=== PATIENT | male | born 1970 | race Hispanic/Latino ===

== ENCOUNTER 2016-12-05 14:33 | Inpatient (IN) | payer BC ==
[2016-12-05] MEDS ORDERED: Lidocaine 1% (10 ml) Inj INFIL STA (15:13)
[2016-12-05] MEDS ORDERED: Vancomycin 1 g Inj ONE (15:26)
[2016-12-05] MEDS ORDERED: Lidocaine 1% Inj (20ml) ONE (15:27)
[2016-12-05 16:16] LABS: VENOUS BLOOD GAS PCO2 55 mmHg (40-60); VENOUS BLOOD PH 7.37 (7.32-7.43)
[2016-12-05 16:37] LABS: BASO % 0.3 % (0.0-2.0); EOS # 0.1 K/uL (0.0-0.7); EOS % 0.4 % (0.0-4.0); HEMATOCRIT 38.7 % (35.0-51.0); LYMPH # 1.9 K/uL (1.0-4.3); LYMPH % 11.1 % (20.0-40.0); MEAN CELL VOLUME 91.3 fl (80.0-94.0); MEAN CORPUSCULAR HEMOGLOBIN 30.8 pg (27.0-31.0); MEAN CORPUSCULAR HGB CONC 33.7 g/dL (33.0-37.0); MEAN PLATELET VOLUME 8.6 fl (7.2-11.7); MONO # 2.3 K/uL (0.0-0.8); NEUT # 13.1 K/uL (1.8-7.0); NEUT % 75.2 % (50.0-75.0); RED CELL DISTRIBUTION WIDTH 12.4 % (11.5-14.5); WHITE BLOOD COUNT 17.4 K/uL (4.8-10.8)
[2016-12-05 16:43] LABS: ALB/GLOB RATIO 1.4 (1.0-2.1); ALKALINE PHOSPHATASE 136 U/L (38-126); ALT/SGPT 87 U/L (21-72); AST/SGOT 53 U/L (17-59); BILIRUBIN,TOTAL 0.9 mg/dl (0.2-1.3); BLOOD UREA NITROGEN 15 mg/dl (9-20); CALCIUM 9.9 mg/dL (8.4-10.2); CARBON DIOXIDE 29 mmol/L (22-30); CHLORIDE 94 mmol/L (98-107); GFR AFRICAN-AMERICAN > 60; GLUCOSE,RANDOM 94 mg/dL (75-110); POTASSIUM 4.2 MMOL/L (3.6-5.0); SODIUM 136 mmol/l (132-148)
[2016-12-05 16:57] LABS: PARTIAL THROMBOPLASTIN TIME 25.8 Seconds (25.6-37.1)
--- NOTE | 2016-12-05 17:19 | ED PDOC ---
HPI: Skin/Bite Injury Chief Complaint (Provider): Abcess on skin History Per: Patient History/Exam Limitations: no limitations Onset/Duration Of Symptoms: Days (1 week) Current Symptoms Are (Timing): Still Present Location Of Injury: Left: Shoulder Quality Of Symptoms: Painful, Swollen, Draining Severity: Moderate Pain Scale Rating Of: 7 <Dameon Osorio - Last Filed: 12/05/16 18:28> <Zayra Tee - Last Filed: 12/06/16 14:21> Time Seen by Provider: 12/05/16 14:57 Chief Complaint (Nursing): Abnormal Skin Integrity Additional Complaint(s): Pt. here today for evaluation of abcess located on left shoulder. Pt. reports he got a tattoo on his left shoulder a week ago and that his shoulder was shaved before getting the tattoo. Pt. states that he saw his PMD last week and was started on Azithromycin which did not help. Pt. currently states that his left shoulder feels tender especially when he touches it. Associated symptoms include subjective fever and chills. On ROS, pt. denies any headache, chest pain , shortness of breath, nausea, vomiting, diarrhea, hematuria, dysuria, flank pain, or joint pain. (Dameon Osorio) Supervising Attending Note <Dameon Osorio - Last Filed: 12/05/16 18:28> <Zayra Tee - Last Filed: 12/06/16 14:21> - Notes: Notes:: 46 yo with abscess and cellulitis. - failed outpatient therapy - elevated WBC - admit to obs (Zayra Tee) Past Medical History - Medical History PMH: No Chronic Diseases - Surgical History Surgical History: No Surg Hx - Family History Family History: States: Unknown Family Hx - Living Arrangements Living Arrangements: With Family - Social History Alcohol: Social <Dameon Osorio - Last Filed: 12/05/16 18:28> <Zayra Tee - Last Filed: 12/06/16 14:21> Vital Signs: Last Vital Signs Temp 100.2 F H 12/06/16 09:00 Pulse 98 H 12/06/16 07:32 Resp 20 12/06/16 07:32 BP 144/90 12/06/16 07:32 Pulse Ox 96 12/06/16 07:32 - Home Medications Home Medications: Ambulatory Orders Medication Instructions Recorded Azithromycin [Zithromax] 250 mg PO DAILY 12/05/16 - Allergies Allergies/Adverse Reactions: Allergies Allergy/AdvReac Type Severity Reaction Status Date / Time Penicillins Allergy PAIN Verified 12/05/16 14:38 Review of Systems Constitutional: Positive for: Fever, Chills Skin: Positive for: Rash (See HPI), Other (+abcess) <Dameon Osorio - Last Filed: 12/05/16 18:28> Physical Exam - Reviewed Vital Signs Reviewed: Yes - Physical Exam Appears: Positive for: No Acute Distress, Uncomfortable Head Exam: Positive for: ATRAUMATIC, NORMOCEPHALIC Skin: Positive for: Rash (abcess left shoulder localized to left deltoid area ) Eye Exam: Positive for: Normal appearance. Negative for: Scleral icterus Neck: Positive for: Painless ROM, Supple Cardiovascular/Chest: Positive for: Tachycardia. Negative for: Murmur Respiratory: Positive for: Normal Breath Sounds. Negative for: Respiratory Distress Gastrointestinal/Abdominal: Positive for: Soft. Negative for: Tenderness Neurologic/Psych: Positive for: Alert (x 3), Oriented <Dameon Osorio - Last Filed: 12/05/16 18:28> - Laboratory Results Result Diagrams: 12/05/16 15:30 12/05/16 15:30 - ECG O2 Sat by Pulse Oximetry: 99 - Progress Re-evaluation Time: 17:54 Condition: Improving,but remains with symptoms <Dameon Osorio - Last Filed: 12/05/16 18:28> - Laboratory Results Result Diagrams: 12/06/16 07:10 12/06/16 07:10 <Zayra Tee - Last Filed: 12/06/16 14:21> - Progress ED Course And Treament: CBC, CMP, UA Vancomycin I.V. I.V. Fluids (Dameon Osorio) Medical Decision Making <aDmeon Osorio - Last Filed: 12/05/16 18:28> <Zayra Tee - Last Filed: 12/06/16 14:21> Medical Decision Makin y.o. male with left shoulder abscess after a getting a tattoo a week ago now with an elevated WBC count of 17 s/p I&D with I.V. Vancomycin given. Pt. blood cultures to be followed. (Dameon Osorio) Disposition - Patient ED Disposition Is Patient to be Admitted: Yes Discussed With : Zayra Tee - Disposition Disposition Time: 18:00 <Dameon Osorio - Last Filed: 12/05/16 18:28> <Zayra Tee - Last Filed: 12/06/16 14:21> - Clinical Impression Clinical Impression: Abscess of left shoulder - Disposition Condition: FAIR
--- NOTE | 2016-12-05 17:57 | CP.PCM.HP ---
<Karena Lee - Last Filed: 12/05/16 18:17> History of Present Illness - History of Present Illness History of Present Illness: CC: LEFT shoulder pain with chills 46M p/w failed outpatient treatment of LEFT shoulder cellulitis thought to be secondary to a folliculitis. Of note patient had a tattoo approximately 9 days prior and reports that the establishment had to shave the site, but that he does not think the tech shaved the back of his shoulder where the abscess was I& D'd. He does report associated chills, fever, and pain at the LEFT shoulder. Otherwise patient denies any other inciting trauma. PMH: None PSH: None Smoke: Denies Alcohol: 2 glasses wine/week Drugs: Denies ALL: PCN JANAE: Azithromycin by PMD that has been stopped. INTERVENTION: I&D in the ED with wound culture sent, Vancomycin started. Present on Admission - Present on Admission Any Indicators Present on Admission: No Review of Systems - Review of Systems All systems: reviewed and no additional remarkable complaints except - Musculoskeletal Musculoskeletal: Stiffness (Cellulitis most prominent at LEFT posterior shoulder ) Past Patient History - Infectious Disease Hx of Infectious Diseases: None - Past Social History Alcohol: Social - PSYCHIATRIC Hx Substance Use: No - SURGICAL HISTORY Hx Surgeries: No - ANESTHESIA Hx Anesthesia: No Meds Allergies/Adverse Reactions: Allergies Allergy/AdvReac Type Severity Reaction Status Date / Time Penicillins Allergy PAIN Verified 12/05/16 14:38 Physical Exam - Constitutional Appears: Well, Non-toxic, No Acute Distress - Head Exam Head Exam: ATRAUMATIC, NORMAL INSPECTION - Eye Exam Eye Exam: EOMI, Normal appearance - ENT Exam ENT Exam: Mucous Membranes Moist, Normal Exam - Respiratory Exam Respiratory Exam: Clear to Auscultation Bilateral, NORMAL BREATHING PATTERN. absent: Rales, Wheezes - Cardiovascular Exam Cardiovascular Exam: REGULAR RHYTHM. absent: JVD - GI/Abdominal Exam GI & Abdominal Exam: Normal Bowel Sounds, Soft. absent: Tenderness - Extremities Exam Extremities exam: Positive for: full ROM, normal capillary refill, pedal edema, pedal pulses present. Negative for: calf tenderness - Expanded Upper Extremities Exam Left Shoulder exam: erythema, swelling, tenderness. absent: full ROM Upper Arm exam: erythema (over LEFT bicep ) Neurosensory exam: median nerve intact, radial nerve intact Vascular exam: radial pulse, ulnar pulse, normal capillary refill Results - Vital Signs Recent Vital Signs: Last Vital Signs Temp 37.9 C H 12/05/16 17:40 Pulse 104 H 12/05/16 17:40 Resp 18 12/05/16 17:40 BP 147/87 12/05/16 17:40 Pulse Ox 99 12/05/16 17:52 - Labs Result Diagrams: 12/05/16 15:30 12/05/16 15:30 Assessment & Plan (1) Abscess of left shoulder Assessment and Plan: 46M with LEFT posterior shoulder abscess and cellulitis underwent I&D in the ED and wound culture sent as well as BCx. Neurovascular intact, tattoo site w/o abnormality. - Admit to Med/Surg - f/u Wound Cx, BCx - Vancomycin - Reg diet - CBC/BMP in AM Status: Acute (2) DVT prophylaxis Assessment and Plan: Lovenox 40mg, SC, Daily Status: Acute <Philipp Gutierrez - Last Filed: 12/05/16 18:49> Results - Vital Signs Recent Vital Signs: Last Vital Signs Temp 100.3 F H 12/05/16 18:13 Pulse 104 H 12/05/16 18:13 Resp 18 12/05/16 18:13 BP 147/87 12/05/16 18:13 Pulse Ox 99 12/05/16 18:28 - Labs Result Diagrams: 12/05/16 15:30 12/05/16 15:30 Attending/Attestation - Attestation I have personally seen and examined this patient.: Yes I have fully participated in the care of the patient.: Yes I have reviewed all pertinent clinical information: Yes
[2016-12-05] MEDS ORDERED: Gentamicin 60mg/50ml NS 60 MG/50 ML BAG IVPB ONE (20:23)
[2016-12-06] MEDS: Oxycodone/Acetaminophen 5/325 mg Tab PO PRN ×2 (07:29→22:33)
--- NOTE | 2016-12-06 08:06 | CP.PCM.CON ---
<ObiDeniseCharlene - Last Filed: 12/06/16 08:07> History of Present Illness - History of Present Illness History of Present Illness: Surgery Consult: Dr. Carrillo Pt is a 46M with no PMHx who presented to [facility] with complaints of Left upper arm pain and swelling secondary to abscess. As per the pt, he started having pain in his left arm/shoulder about a week ago and noticed some swelling and redness so he went to see his primary doctor. Of note, pt recently got a tattoo 9 days ago and admits to his left arm being shaved prior to the procedure. Pt states he was started on PO ABX by Dr. Gutierrez on Monday however, the pain and redness kept getting worse and he started having fevers so he was told to come to the ER. In the ER, pt had an incision and drainage of his Left upper arm abscess. Surgery was also consulted to evaluate. PMHx: denies PSHx: denies SocialHx: denies smoking, drugs/EtOH Allergies: Penicillins Review of Systems - Review of Systems All systems: reviewed and no additional remarkable complaints except (as per HPI ) Past Patient History - Infectious Disease Hx of Infectious Diseases: None - Past Medical History & Family History Past Medical History?: No Past Family History: Reviewed and not pertinent - Past Social History Smoking Status: Never Smoked - CARDIAC Hx Cardiac Disorders: No - PULMONARY Hx Respiratory Disorders: No - NEUROLOGICAL Hx Neurological Disorder: No - HEENT Hx HEENT Problems: No - RENAL Hx Chronic Kidney Disease: No - ENDOCRINE/METABOLIC Hx Endocrine Disorders: No - HEMATOLOGICAL/ONCOLOGICAL Hx Blood Disorders: No - INTEGUMENTARY Hx Dermatological Problems: No - MUSCULOSKELETAL/RHEUMATOLOGICAL Hx Musculoskeletal Disorders: No Hx Falls: No - GASTROINTESTINAL Hx Gastrointestinal Disorders: No - GENITOURINARY/GYNECOLOGICAL Hx Genitourinary Disorders: No - PSYCHIATRIC Hx Psychophysiologic Disorder: No Hx Substance Use: No - SURGICAL HISTORY Hx Surgeries: No - ANESTHESIA Hx Anesthesia: No Meds Allergies/Adverse Reactions: Allergies Allergy/AdvReac Type Severity Reaction Status Date / Time Penicillins Allergy PAIN Verified 12/05/16 14:38 - Medications Medications: Current Medications Acetaminophen (Tylenol 325mg Tab) 650 mg PO Q6 PRN PRN Reason: Pain, Mild (1-3) Last Admin: 12/05/16 19:44 Dose: 650 mg Enoxaparin Sodium (Lovenox) 40 mg SC DAILY FLOR[facility] PRN Reason: Protocol Hydroxyzine HCl (Atarax) 50 mg PO HS PRN PRN Reason: Sleep Last Admin: 12/05/16 22:40 Dose: 50 mg Vancomycin HCl 1 gm/ Sodium (Chloride) 250 mls @ 166.667 mls/hr IVPB DAILY [facility] Oxycodone/Acetaminophen (Percocet 5/325 Mg Tab) 1 tab PO Q6H PRN PRN Reason: Pain, moderate (4-7) Stop: 12/08/16 18:03 Last Admin: 12/06/16 07:29 Dose: 1 tab Physical Exam - Constitutional Appears: Well, No Acute Distress - Head Exam Head Exam: ATRAUMATIC, NORMOCEPHALIC - ENT Exam ENT Exam: Mucous Membranes Moist - Respiratory Exam Respiratory Exam: NORMAL BREATHING PATTERN - Cardiovascular Exam Cardiovascular Exam: RRR - GI/Abdominal Exam GI & Abdominal Exam: Soft. absent: Tenderness - Extremities Exam Extremities exam: Positive for: pedal pulses present Additional comments: Left upper arm with cellulitis around drained abscess; packing in place. Purulent drainage noted. - Neurological Exam Neurological exam: Alert, Oriented x3 - Skin Skin Exam: Dry, Intact, Warm Results - Vital Signs Recent Vital Signs: Last Vital Signs Temp 100.2 F H 12/06/16 07:32 Pulse 98 H 12/06/16 07:32 Resp 20 12/06/16 07:32 BP 144/90 12/06/16 07:32 Pulse Ox 96 12/06/16 07:32 - Labs Result Diagrams: 12/05/16 15:30 12/05/16 15:30 Assessment & Plan - Assessment and Plan (Free Text) Assessment: 46M with L upper arm abscess & cellulitis s/p I&D in the ER Plan: - continue IV ABX as per ID recs - packing/dressing changes PRN - will continue to monitor - d/w Dr. Gerardo Crocker, PGY-2 Surgery <Lewis Vasquez - Last Filed: 12/06/16 10:41> History of Present Illness - History of Present Illness History of Present Illness: Patient was seen and examined at the bedside. Agree with resident's note above Meds - Medications Medications: Current Medications Acetaminophen (Tylenol 325mg Tab) 650 mg PO Q6 PRN PRN Reason: Pain, Mild (1-3) Last Admin: 12/05/16 19:44 Dose: 650 mg Enoxaparin Sodium (Lovenox) 40 mg SC DAILY FLOR[facility]IO PRN Reason: Protocol Hydroxyzine HCl (Atarax) 50 mg PO HS PRN PRN Reason: Sleep Last Admin: 12/05/16 22:40 Dose: 50 mg Vancomycin HCl 1 gm/ Sodium (Chloride) 250 mls @ 166.667 mls/hr IVPB DAILY [facility] Oxycodone/Acetaminophen (Percocet 5/325 Mg Tab) 1 tab PO Q6H PRN PRN Reason: Pain, moderate (4-7) Stop: 12/08/16 18:03 Last Admin: 12/06/16 07:29 Dose: 1 tab Results - Vital Signs Recent Vital Signs: Last Vital Signs Temp 100.2 F H 12/06/16 07:32 Pulse 98 H 12/06/16 07:32 Resp 20 12/06/16 07:32 BP 144/90 12/06/16 07:32 Pulse Ox 96 12/06/16 07:32 - Labs Result Diagrams: 12/06/16 07:10 12/06/16 07:10 Labs: Laboratory Results - last 24 hr 12/06/16 12/06/16 07:10 07:10 WBC 12.1 H RBC 4.04 L Hgb 12.5 Hct 36.2 MCV 89.7 MCH 31.0 MCHC 34.6 RDW 12.1 Plt Count 218 Sodium 136 Potassium 3.9 Chloride 97 L Carbon Dioxide 28 Anion Gap 15 BUN 14 Creatinine 0.8 Est GFR ( Amer) > 60 Est GFR (Non-Af Amer) > 60 Random Glucose 108 Calcium 9.3 Assessment & Plan - Assessment and Plan (Free Text) Plan: - Pain control
[2016-12-06 08:19] LABS: HEMATOCRIT 36.2 % (35.0-51.0); MEAN CELL VOLUME 89.7 fl (80.0-94.0); MEAN CORPUSCULAR HGB CONC 34.6 g/dL (33.0-37.0); RED CELL DISTRIBUTION WIDTH 12.1 % (11.5-14.5); WHITE BLOOD COUNT 12.1 K/uL (4.8-10.8)
[2016-12-06 08:37] LABS: BLOOD UREA NITROGEN 14 mg/dl (9-20); CALCIUM 9.3 mg/dL (8.4-10.2); CARBON DIOXIDE 28 mmol/L (22-30); CHLORIDE 97 mmol/L (98-107); GFR AFRICAN-AMERICAN > 60; GLUCOSE,RANDOM 108 mg/dL (75-110); POTASSIUM 3.9 MMOL/L (3.6-5.0); SODIUM 136 mmol/l (132-148)
--- NOTE | 2016-12-06 10:52 | CP.PCM.PN ---
<Ant Madsen - Last Filed: 12/06/16 11:01> Subjective - Date & Time of Evaluation Date of Evaluation: 12/06/16 Time of Evaluation: 07:10 - Subjective Subjective: Patient seen and examined bedside. Failed outpatient treatment with PO azithromycin for left posterior shoulder abcess. Surgery resident was present and performing dressing change, did drain some fluid from abcesss. Skin is erythematous, No change in cellulitis as per Dr. Gutierrez. Continue with IV abx. ID consult for antibiotic adjustment. Patient feels ok, unable to sleep. No complaints at present. Objective - Vital Signs/Intake and Output Vital Signs (last 24 hours): Temp Pulse Resp BP Pulse Ox 100.2 F H 98 H 20 144/90 96 12/06/16 07:32 12/06/16 07:32 12/06/16 07:32 12/06/16 07:32 12/06/16 07:32 - Medications Medications: Current Medications Acetaminophen (Tylenol 325mg Tab) 650 mg PO Q6 PRN PRN Reason: Pain, Mild (1-3) Last Admin: 12/05/16 19:44 Dose: 650 mg Enoxaparin Sodium (Lovenox) 40 mg SC DAILY FLORENC[facility] PRN Reason: Protocol Hydroxyzine HCl (Atarax) 50 mg PO HS PRN PRN Reason: Sleep Last Admin: 12/05/16 22:40 Dose: 50 mg Vancomycin HCl 1 gm/ Sodium (Chloride) 250 mls @ 166.667 mls/hr IVPB DAILY [facility] Oxycodone/Acetaminophen (Percocet 5/325 Mg Tab) 1 tab PO Q6H PRN PRN Reason: Pain, moderate (4-7) Stop: 12/08/16 18:03 Last Admin: 12/06/16 07:29 Dose: 1 tab - Labs Labs: 12/06/16 07:10 12/06/16 07:10 PT 15.2 Seconds (9.8-13.1) H 12/05/16 15:30 INR 1.3 (0.9-1.2) H 12/05/16 15:30 APTT 25.8 Seconds (25.6-37.1) 12/05/16 15:30 - Constitutional Appears: Well, No Acute Distress - Head Exam Head Exam: NORMAL INSPECTION - Eye Exam Eye Exam: Normal appearance - Respiratory Exam Respiratory Exam: Clear to Ausculation Bilateral, NORMAL BREATHING PATTERN - Cardiovascular Exam Cardiovascular Exam: REGULAR RHYTHM - GI/Abdominal Exam Additional comments: unremarkable - Back Exam Additional comments: left posterior should/upper back: cellulitic area around abcess. packing visualized. dressing placed over incision. - Neurological Exam Neurological Exam: Alert, Awake, CN II-XII Intact, Oriented x3 - Psychiatric Exam Psychiatric exam: Normal Affect, Normal Mood - Skin Skin Exam: Dry, Intact Assessment and Plan - Assessment and Plan (Free Text) Assessment: 46M with L upper arm abscess & cellulitis. S/p I&D in ER. S/p PO course of Azithro. Patient has had low grade fevers 100.3 since admission. Leukocytosis of 17.4, trending down to 12.1. Blood and wound cultures pending. Left shoulder abcess: -Continue with Vancomycin, empirically started. Day 2 -pt had 1 dose of gentamycin -monitor vitals -pain control -follow up blood and wound cultures. -Dressing changes as per surgery (Dr. Carrillo) -Antibiotics as per ID (Dr. Tellez) f/u CBC, bmp in AM Insomnia: Atarax PRN DVT Prophylaxis: Lovenox 40 mg SC <Philipp Gutierrez - Last Filed: 12/07/16 06:40> Objective - Vital Signs/Intake and Output Vital Signs (last 24 hours): Temp Pulse Resp BP Pulse Ox 98.5 F 96 H 18 130/73 94 L 12/07/16 00:44 12/07/16 00:44 12/07/16 00:44 12/07/16 00:44 12/07/16 00:44 - Medications Medications: Current Medications Acetaminophen (Tylenol 325mg Tab) 650 mg PO Q6 PRN PRN Reason: Pain, Mild (1-3) Last Admin: 12/05/16 19:44 Dose: 650 mg Enoxaparin Sodium (Lovenox) 40 mg SC DAILY FLORENCIO PRN Reason: Protocol Last Admin: 12/06/16 16:04 Dose: 40 mg Hydroxyzine HCl (Atarax) 50 mg PO HS PRN PRN Reason: Sleep Last Admin: 12/05/16 22:40 Dose: 50 mg Aztreonam 1 gm/ Sodium (Chloride) 100 mls @ 100 mls/hr IVPB Q12 [facility] Last Admin: 12/06/16 21:00 Dose: 100 mls/hr Vancomycin HCl 1 gm/ Sodium (Chloride) 250 mls @ 166.667 mls/hr IVPB Q12 [facility] Last Admin: 12/06/16 22:30 Dose: 166.667 mls/hr Oxycodone/Acetaminophen (Percocet 5/325 Mg Tab) 1 tab PO Q6H PRN PRN Reason: Pain, moderate (4-7) Stop: 12/08/16 18:03 Last Admin: 12/06/16 22:33 Dose: 1 tab - Labs Labs: 12/06/16 07:10 12/06/16 07:10 PT 15.2 Seconds (9.8-13.1) H 12/05/16 15:30 INR 1.3 (0.9-1.2) H 12/05/16 15:30 APTT 25.8 Seconds (25.6-37.1) 12/05/16 15:30 Attending/Attestation - Attestation I have personally seen and examined this patient.: Yes I have fully participated in the care of the patient.: Yes I have reviewed all pertinent clinical information, including history, physical exam and plan: Yes
[2016-12-06] MEDS: Enoxaparin 40 mg Syringe SC SCH (16:04)
--- NOTE | 2016-12-06 16:23 | CON ---
DATE: 12/06/2016 HISTORY OF PRESENT ILLNESS: He is a 46-year-old male who came to the Emergency Room after being seen in the office of his PMD with a large abscess on his left shoulder and cellulitis. The patient, just to add the history, had a tattoo done recently on the left arm,did not appear infected He developed painful swelling last week and was treated with oral antibiotics with no improvement and subsequently the pain became very severe. He developed fever and chills and was seen by his PMD as noted who then sent him to the Emergency Room. He had an I& D done of the abscess. Was given a dose of vancomycin and place on vancomycin in the ER and admitted At present time, he states he feels a little bit better but has significant drainage and the wound looks purulent. LABORATORY DATA: Microbiology on labs grew Staph aureus, but there are no sensitivities as yet. His creatinine is 0.8 and GFR is greater than 60. ALT is 87, AST is 53 and alkaline phosphatase is 136. Initial white count done in the ER was 17.4. Today's white count is 12.1 after the I and D was done. He did have a left shift on the initial CBC. The patient was also seen by surgery. PHYSICAL EXAMINATION: GENERAL: The patient is alert, cooperative, and oriented to time and place. HEENT: Within normal limits. NECK: Supple. LUNGS: Clear. HEART: Regular sinus rhythm. ABDOMEN: Soft, positive bowel sounds. EXTREMITIES: Lower extremities are no CCE. Right upper extremity is okay. Left, we see, on the posterior aspect of the shoulder, there is a large draining abscess with purulent material; quite tender to the touch. There is a full range of motion in the shoulder and he has no pain when palpating the shoulder. IMPRESSION: At this point is cellulitis with abscess. Antibiotic therapy, HE IS ALLERGIC TO PENICILLIN, is vancomycin 1 gram q. 12 and Azactam 1 gram IV piggyback q. 12. I have ordered a CT scan of the shoulder to rule out any infection within the shoulder, including a septic arthritis, considering the severity of the fever and chills. Will follow up with patient. Xu Tellez MD cc: 61 TT: 12/06/2016 16:22:12 Confirmation # [id number] Dictation # [id number] leyla WOLF
[2016-12-06] MEDS: Aztreonam 1 GM in Sodium Chloride 0.9% 100 ML IVPB SCH (21:00)
--- NOTE | 2016-12-07 06:51 | CP.PCM.PN ---
<Ant Madsen - Last Filed: 12/07/16 16:13> Subjective - Date & Time of Evaluation Date of Evaluation: 12/07/16 Time of Evaluation: 07:15 - Subjective Subjective: Overnight events: Tmax: 100.2. Night resident drained additional fluid from abcess. Patient is feeling better. No complaints at time of visit. Continue with present antibiotics. +wound culture: S.Aureus. Patient placed on contact isolation. As per surgical team: wound improved. Await recommendations for continued antibiotic therapy from ID. Objective - Vital Signs/Intake and Output Vital Signs (last 24 hours): Temp Pulse Resp BP Pulse Ox 98.5 F 96 H 18 130/73 94 L 12/07/16 00:44 12/07/16 00:44 12/07/16 00:44 12/07/16 00:44 12/07/16 00:44 - Medications Medications: Current Medications Acetaminophen (Tylenol 325mg Tab) 650 mg PO Q6 PRN PRN Reason: Pain, Mild (1-3) Last Admin: 12/05/16 19:44 Dose: 650 mg Enoxaparin Sodium (Lovenox) 40 mg SC DAILY FLORENCIO PRN Reason: Protocol Last Admin: 12/06/16 16:04 Dose: 40 mg Hydroxyzine HCl (Atarax) 50 mg PO HS PRN PRN Reason: Sleep Last Admin: 12/05/16 22:40 Dose: 50 mg Aztreonam 1 gm/ Sodium (Chloride) 100 mls @ 100 mls/hr IVPB Q12 [facility] Last Admin: 12/06/16 21:00 Dose: 100 mls/hr Vancomycin HCl 1 gm/ Sodium (Chloride) 250 mls @ 166.667 mls/hr IVPB Q12 [facility] Last Admin: 12/06/16 22:30 Dose: 166.667 mls/hr Oxycodone/Acetaminophen (Percocet 5/325 Mg Tab) 1 tab PO Q6H PRN PRN Reason: Pain, moderate (4-7) Stop: 12/08/16 18:03 Last Admin: 12/06/16 22:33 Dose: 1 tab - Labs Labs: 12/06/16 07:10 12/06/16 07:10 PT 15.2 Seconds (9.8-13.1) H 12/05/16 15:30 INR 1.3 (0.9-1.2) H 12/05/16 15:30 APTT 25.8 Seconds (25.6-37.1) 12/05/16 15:30 - Constitutional Appears: No Acute Distress - Eye Exam Eye Exam: Normal appearance - Respiratory Exam Respiratory Exam: NORMAL BREATHING PATTERN - Cardiovascular Exam Cardiovascular Exam: REGULAR RHYTHM, +S1, +S2 - GI/Abdominal Exam GI & Abdominal Exam: Soft. absent: Tenderness - Extremities Exam Extremities Exam: absent: Pedal Edema - Back Exam Additional comments: left posterior should: dressing clean dry and intact. wound not visualized, improved as per surgical team. Assessment and Plan - Assessment and Plan (Free Text) Assessment: 46M with L upper arm abscess & cellulitis. S/p I&D in ER. S/p PO course of Azithro. Patient has had low grade fevers 100.3 since admission. Leukocytosis of 17.4, trending down to 12.1. Blood cultures negative. Wound culture : + MRSA Left shoulder abcess: -Continue with Vancomycin, empirically started. Day 3. Continue Aztreonam: day2 (started 12/06 at 2100) -pt had 1 dose of gentamycin -monitor vitals -pain control -Dressing changes as per surgery (Dr. Carrillo) -Antibiotics as per ID (Dr. Tellez) f/u CBC, bmp in AM -f/u vanco trough Insomnia: Atarax PRN DVT Prophylaxis: Lovenox 40 mg SC <Philipp Gutierrez A - Last Filed: 12/09/16 09:01> Objective - Vital Signs/Intake and Output Vital Signs (last 24 hours): Temp Pulse Resp BP Pulse Ox 98 F 88 18 146/78 100 12/08/16 10:25 12/08/16 10:25 12/08/16 10:25 12/08/16 10:25 12/08/16 10:25 - Labs Labs: 12/08/16 07:36 12/08/16 06:20 PT 15.2 Seconds (9.8-13.1) H 12/05/16 15:30 INR 1.3 (0.9-1.2) H 12/05/16 15:30 APTT 25.8 Seconds (25.6-37.1) 12/05/16 15:30 Attending/Attestation - Attestation I have personally seen and examined this patient.: Yes I have fully participated in the care of the patient.: Yes I have reviewed all pertinent clinical information, including history, physical exam and plan: Yes
[2016-12-07 07:22] LABS: HEMATOCRIT 36.7 % (35.0-51.0); MEAN CELL VOLUME 90.4 fl (80.0-94.0); MEAN CORPUSCULAR HEMOGLOBIN 30.8 pg (27.0-31.0); MEAN CORPUSCULAR HGB CONC 34.1 g/dL (33.0-37.0); RED CELL DISTRIBUTION WIDTH 12.2 % (11.5-14.5)
[2016-12-07 07:39] LABS: ALB/GLOB RATIO 1.3 (1.0-2.1); ALKALINE PHOSPHATASE 135 U/L (38-126); ALT/SGPT 100 U/L (21-72); AST/SGOT 61 U/L (17-59); BILIRUBIN,TOTAL 0.6 mg/dl (0.2-1.3); BLOOD UREA NITROGEN 12 mg/dl (9-20); CALCIUM 9.4 mg/dL (8.4-10.2); CARBON DIOXIDE 30 mmol/L (22-30); CHLORIDE 96 mmol/L (98-107); GFR AFRICAN-AMERICAN > 60; GLUCOSE,RANDOM 115 mg/dL (75-110); SODIUM 138 mmol/l (132-148); TOTAL PROTEIN 7.1 G/DL (6.3-8.2)
[2016-12-07] MEDS: Aztreonam 1 GM in Sodium Chloride 0.9% 100 ML IVPB SCH ×2 (09:00→20:49)
[2016-12-07] MEDS: Enoxaparin 40 mg Syringe SC SCH (09:30)
--- NOTE | 2016-12-07 09:49 | CP.PCM.PN ---
<Sarah Krause - Last Filed: 12/07/16 09:40> Subjective - Date & Time of Evaluation Date of Evaluation: 12/07/16 Time of Evaluation: 08:20 - Subjective Subjective: 46 male patient was seen this morning concerning abscess/cellulitis to Left upper arm. Pt is s/p Left upper arm incision and drainage in the ED. Pain is controlled. Denies of acute overnight distress. Patient denies of N/V/F/C of SOB today Objective - Vital Signs/Intake and Output Vital Signs (last 24 hours): Temp Pulse Resp BP Pulse Ox 98.4 F 81 20 156/97 H 96 12/07/16 08:56 12/07/16 08:56 12/07/16 08:56 12/07/16 08:56 12/07/16 08:56 - Medications Medications: Current Medications Acetaminophen (Tylenol 325mg Tab) 650 mg PO Q6 PRN PRN Reason: Pain, Mild (1-3) Last Admin: 12/05/16 19:44 Dose: 650 mg Enoxaparin Sodium (Lovenox) 40 mg SC DAILY FLORENCIO PRN Reason: Protocol Last Admin: 12/07/16 09:30 Dose: 40 mg Hydroxyzine HCl (Atarax) 50 mg PO HS PRN PRN Reason: Sleep Last Admin: 12/05/16 22:40 Dose: 50 mg Aztreonam 1 gm/ Sodium (Chloride) 100 mls @ 100 mls/hr IVPB Q12 FLORENCIO Last Admin: 12/06/16 21:00 Dose: 100 mls/hr Vancomycin HCl 1 gm/ Sodium (Chloride) 250 mls @ 166.667 mls/hr IVPB Q12 FLORENCIO Last Admin: 12/07/16 09:28 Dose: 166.667 mls/hr Ketorolac Tromethamine (Toradol) 30 mg IVP Q6 PRN PRN Reason: Pain, moderate (4-7) Last Admin: 12/07/16 09:36 Dose: 30 mg Oxycodone/Acetaminophen (Percocet 5/325 Mg Tab) 1 tab PO Q6H PRN PRN Reason: Pain, moderate (4-7) Stop: 12/08/16 18:03 Last Admin: 12/06/16 22:33 Dose: 1 tab - Labs Labs: 12/07/16 06:25 12/07/16 06:25 PT 15.2 Seconds (9.8-13.1) H 12/05/16 15:30 INR 1.3 (0.9-1.2) H 12/05/16 15:30 APTT 25.8 Seconds (25.6-37.1) 12/05/16 15:30 - Constitutional Appears: Well, Non-toxic, No Acute Distress - Extremities Exam Additional comments: LEFT posterior shoulder exam Two open linear incision sites noted with erythema round the wound. <1cc purulent drainage is noted from the proximal incision site. no mal-odor is noted. no PTB. - Neurological Exam Neurological Exam: Alert, Awake, Oriented x3 - Psychiatric Exam Psychiatric exam: Normal Affect, Normal Mood Assessment and Plan - Assessment and Plan (Free Text) Assessment: 46M with L posterior shoulder abscess and cellulitis underwent s/p I&D in the ED Plan: Patient was seen, evaluated at bedside Dressing changed with packing this AM Left shoulder WCX: MRSA continue IV ABX as per ID recs will continue to monitor Surgical intervention not needed at this time d/w Dr. Carrillo <Lewis Vasquez - Last Filed: 12/07/16 10:10> Subjective - Date & Time of Evaluation Time of Evaluation: 10:00 - Subjective Subjective: Patient was seen and examined at the bedside. Agree with residents note above. Objective - Vital Signs/Intake and Output Vital Signs (last 24 hours): Temp Pulse Resp BP Pulse Ox 98.4 F 81 20 156/97 H 96 12/07/16 08:56 12/07/16 08:56 12/07/16 08:56 12/07/16 08:56 12/07/16 08:56 - Medications Medications: Current Medications Acetaminophen (Tylenol 325mg Tab) 650 mg PO Q6 PRN PRN Reason: Pain, Mild (1-3) Last Admin: 12/05/16 19:44 Dose: 650 mg Enoxaparin Sodium (Lovenox) 40 mg SC DAILY FLORENCIO PRN Reason: Protocol Last Admin: 12/07/16 09:30 Dose: 40 mg Hydroxyzine HCl (Atarax) 50 mg PO HS PRN PRN Reason: Sleep Last Admin: 12/05/16 22:40 Dose: 50 mg Aztreonam 1 gm/ Sodium (Chloride) 100 mls @ 100 mls/hr IVPB Q12 FLORENCIO Last Admin: 12/06/16 21:00 Dose: 100 mls/hr Vancomycin HCl 1 gm/ Sodium (Chloride) 250 mls @ 166.667 mls/hr IVPB Q12 FLORENCIO Last Admin: 12/07/16 09:28 Dose: 166.667 mls/hr Ketorolac Tromethamine (Toradol) 30 mg IVP Q6 PRN PRN Reason: Pain, moderate (4-7) Last Admin: 12/07/16 09:36 Dose: 30 mg Oxycodone/Acetaminophen (Percocet 5/325 Mg Tab) 1 tab PO Q6H PRN PRN Reason: Pain, moderate (4-7) Stop: 12/08/16 18:03 Last Admin: 12/06/16 22:33 Dose: 1 tab - Labs Labs: 12/07/16 06:25 12/07/16 06:25 PT 15.2 Seconds (9.8-13.1) H 12/05/16 15:30 INR 1.3 (0.9-1.2) H 12/05/16 15:30 APTT 25.8 Seconds (25.6-37.1) 12/05/16 15:30 Assessment and Plan - Assessment and Plan (Free Text) Plan: - Will follow up CT of the extremity results - Repeat labs in am - Will follow
--- NOTE | 2016-12-07 13:16 | CT ---
PROCEDURE: CT left upper extremity HISTORY: right shoulder pain, left posterior abcess COMPARISON: None. TECHNIQUE: 2.5 mm axial acquisition and display. Coronal and sagittal reconstructions. Dose report (mGy-cm): 336.31 FINDINGS: Cutaneous and subcutaneous edematous changes adjacent to the adjacent muscles including deltoid and triceps muscles. Air within the cutaneous and subcutaneous soft tissues noted. No drainable collection. No evidence of osteomyelitis. No additional osseous or soft tissue abnormalities. Visualized pulmonary parenchyma within normal limits. IMPRESSION: Inflammatory changes affecting cutaneous subcutaneous tissues extending to the triceps and deltoid muscles. No drainable collection. Precise assessment of intramuscular involvement is limited by technique. Concordant results (preliminary interpretation) provided by [facility]. Procedure Completed: 17:08 Preliminary ([facility]) Report: Dictated and Authenticated: 19:14 Final Interpretation: 13:11. December 07, 2016.
[2016-12-07 16:07] VITALS: RESP 18
--- NOTE | 2016-12-07 18:00 | CP.PCM.PN ---
Subjective - Date & Time of Evaluation Date of Evaluation: 12/07/16 Time of Evaluation: 17:54 - Subjective Subjective: I D NOTE DISCUSSED IN DETAIL TREATMENT AND RESULTS OF TESTING C PATIENT HE WILL HAVE PICC INSERTED TOMORROW HE WILL RECEIVE 2 WEEKS OF IV VANCOMYCIN HAVE CMP AND VANCO TROUGH DONE 2X WEEKLY JÚNIOR CROWDER ALSO DISCUSSED IN DETAIL Objective - Vital Signs/Intake and Output Vital Signs (last 24 hours): Temp Pulse Resp BP Pulse Ox 99.3 F 79 18 146/92 H 97 12/07/16 16:06 12/07/16 16:06 12/07/16 16:06 12/07/16 16:06 12/07/16 16:06 - Medications Medications: Current Medications Acetaminophen (Tylenol 325mg Tab) 650 mg PO Q6 PRN PRN Reason: Pain, Mild (1-3) Last Admin: 12/05/16 19:44 Dose: 650 mg Enoxaparin Sodium (Lovenox) 40 mg SC DAILY FLORENCIO PRN Reason: Protocol Last Admin: 12/07/16 09:30 Dose: 40 mg Hydroxyzine HCl (Atarax) 50 mg PO HS PRN PRN Reason: Sleep Last Admin: 12/05/16 22:40 Dose: 50 mg Aztreonam 1 gm/ Sodium (Chloride) 100 mls @ 100 mls/hr IVPB Q12 FLORENCIO Last Admin: 12/07/16 09:00 Dose: 100 mls/hr Vancomycin HCl 1 gm/ Sodium (Chloride) 250 mls @ 166.667 mls/hr IVPB Q12 FLORENCIO Last Admin: 12/07/16 09:28 Dose: 166.667 mls/hr Ketorolac Tromethamine (Toradol) 30 mg IVP Q6 PRN PRN Reason: Pain, moderate (4-7) Last Admin: 12/07/16 16:11 Dose: 30 mg Oxycodone/Acetaminophen (Percocet 5/325 Mg Tab) 1 tab PO Q6H PRN PRN Reason: Pain, moderate (4-7) Stop: 12/08/16 18:03 Last Admin: 12/06/16 22:33 Dose: 1 tab - Labs Labs: 12/07/16 06:25 12/07/16 06:25 PT 15.2 Seconds (9.8-13.1) H 12/05/16 15:30 INR 1.3 (0.9-1.2) H 12/05/16 15:30 APTT 25.8 Seconds (25.6-37.1) 12/05/16 15:30
--- NOTE | 2016-12-08 06:29 | CP.PCM.PN ---
<Ant Madsen - Last Filed: 12/08/16 12:13> Subjective - Date & Time of Evaluation Date of Evaluation: 12/08/16 Time of Evaluation: 07:30 - Subjective Subjective: Patient seen and evaluated bedside with Dr. Paige and family medicine team. No complaints of pain. Tolerating regular diet. No acute events overnight. Patient states he had sweats last night. Plan of care discussed with patient. He is for PICC line placement today. Objective - Vital Signs/Intake and Output Vital Signs (last 24 hours): Temp Pulse Resp BP Pulse Ox 98.8 F 80 18 140/88 98 12/08/16 00:25 12/08/16 00:25 12/08/16 00:25 12/08/16 00:25 12/08/16 00:25 - Medications Medications: Current Medications Acetaminophen (Tylenol 325mg Tab) 650 mg PO Q6 PRN PRN Reason: Pain, Mild (1-3) Last Admin: 12/05/16 19:44 Dose: 650 mg Enoxaparin Sodium (Lovenox) 40 mg SC DAILY FLORENCIO PRN Reason: Protocol Last Admin: 12/07/16 09:30 Dose: 40 mg Hydroxyzine HCl (Atarax) 50 mg PO HS PRN PRN Reason: Sleep Last Admin: 12/07/16 23:24 Dose: 50 mg Aztreonam 1 gm/ Sodium (Chloride) 100 mls @ 100 mls/hr IVPB Q12 FLORENCIO Last Admin: 12/07/16 20:49 Dose: 100 mls/hr Vancomycin HCl 1 gm/ Sodium (Chloride) 250 mls @ 166.667 mls/hr IVPB Q12 FLORENCIO Last Admin: 12/07/16 22:15 Dose: 166.667 mls/hr Ketorolac Tromethamine (Toradol) 30 mg IVP Q6 PRN PRN Reason: Pain, moderate (4-7) Last Admin: 12/07/16 22:12 Dose: 30 mg Oxycodone/Acetaminophen (Percocet 5/325 Mg Tab) 1 tab PO Q6H PRN PRN Reason: Pain, moderate (4-7) Stop: 12/08/16 18:03 Last Admin: 12/06/16 22:33 Dose: 1 tab - Labs Labs: 12/07/16 06:25 12/07/16 06:25 PT 15.2 Seconds (9.8-13.1) H 12/05/16 15:30 INR 1.3 (0.9-1.2) H 12/05/16 15:30 APTT 25.8 Seconds (25.6-37.1) 12/05/16 15:30 - Constitutional Appears: No Acute Distress - Eye Exam Eye Exam: Normal appearance - ENT Exam ENT Exam: Normal Exam - Respiratory Exam Respiratory Exam: NORMAL BREATHING PATTERN - Cardiovascular Exam Cardiovascular Exam: REGULAR RHYTHM - GI/Abdominal Exam GI & Abdominal Exam: Soft. absent: Tenderness - Extremities Exam Extremities Exam: absent: Pedal Edema - Skin Additional comments: dressing covering wound, wound not visualized. Assessment and Plan - Assessment and Plan (Free Text) Assessment: 46M with L upper arm abscess & cellulitis. S/p I&D in ER. S/p PO course of Azithro. afebrile, low grade temp 100.4, Leukocytosis resolved: 8.9 Blood cultures negative. Wound culture : + MRSA Left shoulder abcess: -Continue with Vancomycin, empirically started. Day 4. Continue Aztreonam: day3 (started 12/06 at 2100) -pt had 1 dose of gentamycin -monitor vitals -pain control -Antibiotics as per ID (Dr. Tellez): pt will have CMP 2x week and Vancomycin 1gm q12 for 2 weeks. vanco trough: 5.2 Insomnia: Atarax PRN DVT Prophylaxis: Lovenox 40 mg SC <Chepe Paige - Last Filed: 12/09/16 09:17> Objective - Vital Signs/Intake and Output Vital Signs (last 24 hours): Temp Pulse Resp BP Pulse Ox 98 F 88 18 146/78 100 12/08/16 10:25 12/08/16 10:25 12/08/16 10:25 12/08/16 10:25 12/08/16 10:25 - Labs Labs: 12/08/16 07:36 12/08/16 06:20 PT 15.2 Seconds (9.8-13.1) H 12/05/16 15:30 INR 1.3 (0.9-1.2) H 12/05/16 15:30 APTT 25.8 Seconds (25.6-37.1) 12/05/16 15:30 Attending/Attestation - Attestation I have personally seen and examined this patient.: Yes I have fully participated in the care of the patient.: Yes I have reviewed all pertinent clinical information, including history, physical exam and plan: Yes
[2016-12-08 07:33] LABS: ALB/GLOB RATIO 1.3 (1.0-2.1); ALKALINE PHOSPHATASE 119 U/L (38-126); ALT/SGPT 89 U/L (21-72); AST/SGOT 47 U/L (17-59); BILIRUBIN,TOTAL 0.4 mg/dl (0.2-1.3); BLOOD UREA NITROGEN 16 mg/dl (9-20); CALCIUM 9.5 mg/dL (8.4-10.2); CARBON DIOXIDE 29 mmol/L (22-30); CHLORIDE 99 mmol/L (98-107); GFR AFRICAN-AMERICAN > 60; GLUCOSE,RANDOM 107 mg/dL (75-110); POTASSIUM 4.2 MMOL/L (3.6-5.0); SODIUM 138 mmol/l (132-148); TOTAL PROTEIN 6.7 G/DL (6.3-8.2)
[2016-12-08 07:52] LABS: BASO # 0.1 K/uL (0.0-0.2); BASO % 0.8 % (0.0-2.0); EOS # 0.2 K/uL (0.0-0.7); EOS % 2.3 % (0.0-4.0); LYMPH # 1.9 K/uL (1.0-4.3); LYMPH % 21.6 % (20.0-40.0); MEAN CELL VOLUME 89.5 fl (80.0-94.0); MEAN CORPUSCULAR HEMOGLOBIN 31.2 pg (27.0-31.0); MEAN CORPUSCULAR HGB CONC 34.8 g/dL (33.0-37.0); MEAN PLATELET VOLUME 8.1 fl (7.2-11.7); MONO % 11.7 % (0.0-10.0); NEUT # 5.7 K/uL (1.8-7.0); NEUT % 63.6 % (50.0-75.0); WHITE BLOOD COUNT 8.9 K/uL (4.8-10.8)
--- NOTE | 2016-12-08 08:17 | CP.PCM.PN ---
<Sarah Krause - Last Filed: 12/08/16 10:30> Subjective - Date & Time of Evaluation Date of Evaluation: 12/08/16 Time of Evaluation: 07:25 - Subjective Subjective: 46 male patient was seen this morning concerning abscess/cellulitis to Left upper arm (s/p I&D in ED). Patient states he feels better today in terms of pain. Denies of acute overnight distress. Patient denies of N/V/F/C of SOB today Objective - Vital Signs/Intake and Output Vital Signs (last 24 hours): Temp Pulse Resp BP Pulse Ox 98.2 F 74 18 141/94 H 98 12/08/16 07:43 12/08/16 07:43 12/08/16 07:43 12/08/16 07:43 12/08/16 07:43 - Medications Medications: Current Medications Acetaminophen (Tylenol 325mg Tab) 650 mg PO Q6 PRN PRN Reason: Pain, Mild (1-3) Last Admin: 12/05/16 19:44 Dose: 650 mg Enoxaparin Sodium (Lovenox) 40 mg SC DAILY FLORENCIO PRN Reason: Protocol Last Admin: 12/07/16 09:30 Dose: 40 mg Famotidine (Pepcid) 20 mg PO DAILY FLORENCIO Hydroxyzine HCl (Atarax) 50 mg PO HS PRN PRN Reason: Sleep Last Admin: 12/07/16 23:24 Dose: 50 mg Aztreonam 1 gm/ Sodium (Chloride) 100 mls @ 100 mls/hr IVPB Q12 FLORENCIO Last Admin: 12/07/16 20:49 Dose: 100 mls/hr Vancomycin HCl 1 gm/ Sodium (Chloride) 250 mls @ 166.667 mls/hr IVPB Q12 FLORENCIO Last Admin: 12/07/16 22:15 Dose: 166.667 mls/hr Ketorolac Tromethamine (Toradol) 30 mg IVP Q6 PRN PRN Reason: Pain, moderate (4-7) Last Admin: 12/07/16 22:12 Dose: 30 mg - Labs Labs: 12/08/16 07:36 12/08/16 06:20 PT 15.2 Seconds (9.8-13.1) H 12/05/16 15:30 INR 1.3 (0.9-1.2) H 12/05/16 15:30 APTT 25.8 Seconds (25.6-37.1) 12/05/16 15:30 - Constitutional Appears: Well, Non-toxic, No Acute Distress - Extremities Exam Additional comments: LEFT posterior shoulder exam One open linear incision site measuring 2cm and two small puncture incision sites noted with erythema round the wound. Area of erythema decreased from that of yesterday. <1cc purulent drainage is noted. no mal-odor is noted. no PTB. no tracking - Neurological Exam Neurological Exam: Alert, Awake, Oriented x3 - Psychiatric Exam Psychiatric exam: Normal Affect, Normal Mood - Skin Skin Exam: Normal Color, Warm Assessment and Plan - Assessment and Plan (Free Text) Assessment: 46M with L posterior shoulder abscess and cellulitis underwent s/p I&D in the ED Plan: Patient was seen, evaluated at bedside Labs and vitals reviewed: WBC 8.9 today, Afebrile Left shoulder WCX: MRSA Blood CX: No growth preliminary Wound cleansed with sterile saline, Dressing changed continue IV ABX as per ID recs will continue to monitor d/w Dr. Granado <Lewis Vasquez - Last Filed: 12/08/16 10:34> Subjective - Date & Time of Evaluation Time of Evaluation: 10:15 - Subjective Subjective: Patient was seen and examined at the bedside. Agree with resident's note above. Objective - Vital Signs/Intake and Output Vital Signs (last 24 hours): Temp Pulse Resp BP Pulse Ox 98.2 F 74 18 141/94 H 98 12/08/16 07:43 12/08/16 07:43 12/08/16 07:43 12/08/16 07:43 12/08/16 07:43 - Medications Medications: Current Medications Acetaminophen (Tylenol 325mg Tab) 650 mg PO Q6 PRN PRN Reason: Pain, Mild (1-3) Last Admin: 12/05/16 19:44 Dose: 650 mg Enoxaparin Sodium (Lovenox) 40 mg SC DAILY FLORENCIO PRN Reason: Protocol Last Admin: 12/07/16 09:30 Dose: 40 mg Famotidine (Pepcid) 20 mg PO DAILY FLORENCIO Hydroxyzine HCl (Atarax) 50 mg PO HS PRN PRN Reason: Sleep Last Admin: 12/07/16 23:24 Dose: 50 mg Aztreonam 1 gm/ Sodium (Chloride) 100 mls @ 100 mls/hr IVPB Q12 FLORENCIO Last Admin: 12/08/16 08:49 Dose: 100 mls/hr Vancomycin HCl 1 gm/ Sodium (Chloride) 250 mls @ 166.667 mls/hr IVPB Q12 FLORENCIO Last Admin: 12/08/16 08:53 Dose: 166.667 mls/hr Ketorolac Tromethamine (Toradol) 30 mg IVP Q6 PRN PRN Reason: Pain, moderate (4-7) Last Admin: 12/07/16 22:12 Dose: 30 mg - Labs Labs: 12/08/16 07:36 12/08/16 06:20 PT 15.2 Seconds (9.8-13.1) H 12/05/16 15:30 INR 1.3 (0.9-1.2) H 12/05/16 15:30 APTT 25.8 Seconds (25.6-37.1) 12/05/16 15:30
[2016-12-08] MEDS: Aztreonam 1 GM in Sodium Chloride 0.9% 100 ML IVPB SCH (08:49)
--- NOTE | 2016-12-08 09:56 | CP.PCM.PN ---
Subjective - Date & Time of Evaluation Date of Evaluation: 12/08/16 Time of Evaluation: 07:10 - Subjective Subjective: Patient seen and examined bedside. Patient was able to sleep, not complaining of pain. He is tolerating regular diet. Patient is for PICC line today. Objective - Vital Signs/Intake and Output Vital Signs (last 24 hours): Temp Pulse Resp BP Pulse Ox 98.2 F 74 18 141/94 H 98 12/08/16 07:43 12/08/16 07:43 12/08/16 07:43 12/08/16 07:43 12/08/16 07:43 - Medications Medications: Current Medications Acetaminophen (Tylenol 325mg Tab) 650 mg PO Q6 PRN PRN Reason: Pain, Mild (1-3) Last Admin: 12/05/16 19:44 Dose: 650 mg Enoxaparin Sodium (Lovenox) 40 mg SC DAILY FLORENCIO PRN Reason: Protocol Last Admin: 12/07/16 09:30 Dose: 40 mg Famotidine (Pepcid) 20 mg PO DAILY FLORENCIO Hydroxyzine HCl (Atarax) 50 mg PO HS PRN PRN Reason: Sleep Last Admin: 12/07/16 23:24 Dose: 50 mg Aztreonam 1 gm/ Sodium (Chloride) 100 mls @ 100 mls/hr IVPB Q12 FLORENCIO Last Admin: 12/08/16 08:49 Dose: 100 mls/hr Vancomycin HCl 1 gm/ Sodium (Chloride) 250 mls @ 166.667 mls/hr IVPB Q12 FLORENCIO Last Admin: 12/08/16 08:53 Dose: 166.667 mls/hr Ketorolac Tromethamine (Toradol) 30 mg IVP Q6 PRN PRN Reason: Pain, moderate (4-7) Last Admin: 12/07/16 22:12 Dose: 30 mg - Labs Labs: 12/08/16 07:36 12/08/16 06:20 PT 15.2 Seconds (9.8-13.1) H 12/05/16 15:30 INR 1.3 (0.9-1.2) H 12/05/16 15:30 APTT 25.8 Seconds (25.6-37.1) 12/05/16 15:30
[2016-12-08] MEDS ORDERED: Lidocaine 1% Inj (20ml) ONE (10:11)
--- NOTE | 2016-12-08 10:26 | PCM.SURG1 ---
Surgeon's Initial Post Op Note - Surgeon's Notes Surgeon: Darrell Morse MD Kelly Machine Operator: None Type of Anesthesia: Local Pre-Operative Diagnosis: Shoulder infection Operative Findings: Patent right basilic vein Post-Operative Diagnosis: Shoulder infection Operation Performed: Single lumen picc placement, 39 cm, via the basilic vein. Tip in SVC. Specimen/Specimens Removed: None Estimated Blood Loss: EBL {In ML}: 2 Blood Products Given: N/A Drains Used: No Drains Post-Op Condition: Fair Date of Surgery/Procedure: 12/08/16 Time of Surgery/Procedure: 10:20
[2016-12-08 11:01] VITALS: BP 146/78; PULSE 88; TEMP 98; O2SAT 100
--- NOTE | 2016-12-08 13:29 | VASCULAR ---
PROCEDURE: Date of procedure: 12/08/2016 Procedure: 1. Placement of a right arm PICC with ultrasound and fluoroscopic guidance, CPT 81273 2. PICC tip confirmation with spot radiograph and is in the superior vena cava Medications: 3cc 1 percent lidocaine Total Fluoro time: 5.6 seconds Radiation: 0.75 mGy EBL: 2 cc HISTORY: Shoulder infection requiring long-term IV antibiotics TECHNIQUE: Following informed consent and procedure time-out, the patient was placed supine on the interventional table and the right arm prepped and draped in the usual sterile fashion. Ultrasound showed a patent and compressible right basilic vein. After the skin was anesthetized with lidocaine, the basilic vein was accessed with micro micropuncture technique using ultrasound guidance. A guidewire was then advanced under fluoroscopic guidance into the superior vena cava. An image documenting ultrasound guidance for vascular access was permanently saved. The length of the single-lumen 4 Bengali PICC was trimmed to 39 centimeters and advanced through a peel-away sheath. The PICC was position with tip of PICC confirm a spot radiograph the superior vena cava. The PICC was secured to the patient's skin. The PICC was flushed. A biopatch and sterile dressing was applied. IMPRESSION: Placement of a single-lumen 4 Bengali PICC trimmed to 39 centimeters via right basilic vein. The tip of the PICC is confirmed with spot radiograph and is in the superior vena cava.
--- NOTE | 2016-12-08 14:01 | CP.PCM.DIS ---
Provider - Provider Date of Admission: 12/05/16 17:13 Attending physician: Philipp Gutierrez MD Time Spent in preparation of Discharge (in minutes): 30 Hospital Course - Lab Results Lab Results: Micro Results 12/05/16 20:34 Blood Blood Culture - Preliminary NO GROWTH AFTER 48 HOURS 12/05/16 17:30 Shoulder - Left Gram Stain - Final 12/05/16 17:30 Shoulder - Left Wound Culture - Final Methicillin Resistant S Aureus Most Recent Lab Values WBC 8.9 K/uL (4.8-10.8) 12/08/16 07:36 RBC 3.80 Mil/uL (4.40-5.90) L 12/08/16 07:36 Hgb 11.8 g/dL (12.0-18.0) L 12/08/16 07:36 Hct 34.0 % (35.0-51.0) L 12/08/16 07:36 MCV 89.5 fl (80.0-94.0) 12/08/16 07:36 MCH 31.2 pg (27.0-31.0) H 12/08/16 07:36 MCHC 34.8 g/dL (33.0-37.0) 12/08/16 07:36 RDW 12.0 % (11.5-14.5) 12/08/16 07:36 Plt Count 247 K/uL (130-400) 12/08/16 07:36 MPV 8.1 fl (7.2-11.7) 12/08/16 07:36 Neut % (Auto) 63.6 % (50.0-75.0) 12/08/16 07:36 Lymph % (Auto) 21.6 % (20.0-40.0) 12/08/16 07:36 Webster % (Auto) 11.7 % (0.0-10.0) H 12/08/16 07:36 Eos % (Auto) 2.3 % (0.0-4.0) 12/08/16 07:36 Baso % (Auto) 0.8 % (0.0-2.0) 12/08/16 07:36 Neut # 5.7 K/uL (1.8-7.0) 12/08/16 07:36 Lymph # 1.9 K/uL (1.0-4.3) 12/08/16 07:36 Webster # 1.0 K/uL (0.0-0.8) H 12/08/16 07:36 Eos # 0.2 K/uL (0.0-0.7) 12/08/16 07:36 Baso # 0.1 K/uL (0.0-0.2) 12/08/16 07:36 ESR 73 mm/hr (0-15) H 12/08/16 06:20 PT 15.2 Seconds (9.8-13.1) H 12/05/16 15:30 INR 1.3 (0.9-1.2) H 12/05/16 15:30 APTT 25.8 Seconds (25.6-37.1) 12/05/16 15:30 pO2 20 mm/Hg (30-55) L 12/05/16 16:05 VBG pH 7.37 (7.32-7.43) 12/05/16 16:05 VBG pCO2 55 mmHg (40-60) 12/05/16 16:05 VBG HCO3 27.0 mmol/L 12/05/16 16:05 VBG Total CO2 33.5 mmol/L (22-28) H 12/05/16 16:05 VBG O2 Sat (Calc) 29.2 % (40-65) L 12/05/16 16:05 VBG Base Excess 5.0 mmol/L (0.0-2.0) H 12/05/16 16:05 VBG Potassium 4.1 mmol/L (3.6-5.2) 12/05/16 16:05 Sodium 132.0 mmol/L (132-148) 12/05/16 16:05 Chloride 96.0 mmol/L (98-107) L 12/05/16 16:05 Glucose 98 mg/dL (75-110) 12/05/16 16:05 Lactate 1.3 mmol/L (0.7-2.1) 12/05/16 16:05 FiO2 21.0 % 12/05/16 16:05 Sodium 138 mmol/l (132-148) 12/08/16 06:20 Potassium 4.2 MMOL/L (3.6-5.0) 12/08/16 06:20 Chloride 99 mmol/L (98-107) 12/08/16 06:20 Carbon Dioxide 29 mmol/L (22-30) 12/08/16 06:20 Anion Gap 15 (10-20) 12/08/16 06:20 BUN 16 mg/dl (9-20) 12/08/16 06:20 Creatinine 0.8 mg/dL (0.8-1.5) 12/08/16 06:20 Est GFR ( Amer) > 60 12/08/16 06:20 Est GFR (Non-Af Amer) > 60 12/08/16 06:20 Random Glucose 107 mg/dL (75-110) 12/08/16 06:20 Calcium 9.5 mg/dL (8.4-10.2) 12/08/16 06:20 Total Bilirubin 0.4 mg/dl (0.2-1.3) 12/08/16 06:20 AST 47 U/L (17-59) 12/08/16 06:20 ALT 89 U/L (21-72) H 12/08/16 06:20 Alkaline Phosphatase 119 U/L (38-126) 12/08/16 06:20 Total Creatine Kinase 46 U/L (55-170) L 12/07/16 10:45 Total Protein 6.7 G/DL (6.3-8.2) 12/08/16 06:20 Albumin 3.8 g/dL (3.5-5.0) 12/08/16 06:20 Globulin 2.9 gm/dL (2.2-3.9) 12/08/16 06:20 Albumin/Globulin Ratio 1.3 (1.0-2.1) 12/08/16 06:20 Procalcitonin 0.08 NG/ML (0.19-0.49) L 12/07/16 06:25 Venous Blood Potassium 4.1 mmol/L (3.6-5.2) 12/05/16 16:05 Vancomycin Trough 5.2 ug/mL (5.0-10.0) 12/07/16 20:15 - Hospital Course Hospital Course: 46 year old male admitted for left posterior shoulder abcess, found to be + MRSA. Patient had I &D and received 4 days of IV antibiotics which included Vancomycon, Aztreonam and one dose of gentamycin. Left shoulder CT revealed: Inflammatory changes affecting cutaneous subcutaneous tissues extending to the triceps and deltoid muscles. No drainable collection. Precise assessment of intramuscular involvement is limited by technique. Patient was seen by Dr. Tellez (ID) and recommended 2 week course of IV vancomycin and CMP two times per week for duration of antibiotic treatment. Patient had PICC line placed today. Will follow up with Dr. Paige outpatient in 1 week. discharge medications: Vancomycin 1gm q12 IV x 2 weeks. - Date & Time of H&P Date of H&P: 12/05/16 Time of H&P: 17:55 Discharge Exam - Head Exam Head Exam: NORMAL INSPECTION Discharge Plan - Discharge Medications Prescriptions: Naproxen [Naprosyn] 500 mg PO Q12H #28 tablet Vancomycin 1 GM [Vancomycin 1GM in Normal Saline Addvantage] 1 gm IVPB Q12 14 Days - Follow Up Plan Condition: FAIR Disposition: HOME/ ROUTINE Patient education suggested?: Yes Instructions: MRSA (Methicillin Resistant Staphylococcus Aureus) (DC) Referrals: Chepe Paige MD [Staff Provider] -
== END 2016-12-08 14:52 | disposition home or self-care (01) | DRG 603 ==
LOC: H.ER 14:33 → H.ERHOLD 17:13 → H.MEDSURG1 18:32
PROVIDERS: ADMIT Family Medicine; ATTEND Family Medicine
PROC: 0H9CXZZ Drainage of Left Upper Arm Skin, External Approach (ICD-10-PCS; principal; 2016-12-05)
PROC: 02HV33Z Insertion of Infusion Device into Superior Vena Cava, Percutaneous Approach (ICD-10-PCS; 2016-12-07)
DX: L02.414 Cutaneous abscess of left upper limb (principal); B95.62 Methicillin resistant Staphylococcus aureus infection as the cause of diseases classified elsewhere; G47.00 Insomnia, unspecified; Z88.0 Allergy status to penicillin